=== PATIENT | male | born 1925 | race Caucasian/White ===

== ENCOUNTER → 2017-05-13 | Day surgery (SDC) | payer MEDICARE ==
[~2017-05-13] VITALS: Ht 185.4 cm; Wt 95.0 kg
[~2017-05-13] MED LIST: ATOR80TA45 PO; BACITRACIN TOP OINT 15 GM TUBE ONE; CHLORHEXIDINE GLUCONATE 2 % 1 PACK (2 CLOTHS) TOPICAL PRN; CHOL1TAB29 PO; DEXAMETHASONE SOD PHOS 4 MG/ML VIAL IV ONE; DYAZ37.5 PO; ENAL20TA PO; FAMOTIDINE 20 MG/2 ML VIAL ONE; FISH100020 PO; GEMF600T PO; GLIM4TAB PO; INSULIN HUMAN REGULAR 1,000 UNITS/10 ML VIAL SQ PRN; LACTATED RINGER'S 1000 ML IV PRN; LIDOCAINE 1%/EPINEPHrine 1:100,000 SOLN 30 ML VIAL ONE; LIDOCAINE HCL 1% PF 5 ML SYRINGE OTHER ONE; LISI-515 PO; METOPROLOL TARTRATE 25 MG TAB PO PRN; MINERAL OIL 10 ML VIAL ONE; ONDANSETRON HCL 4 MG/2 ML VIAL IV PUSH ONE; OXYC1TAB63 PO; PHENYLEPH/NS 1000 MCG/10 ML SYR IV ONE; POVIDONE IODINE 5% (ANTISEPSIS KIT) 4 APPLICATIONS EACH NARE PRN; PROPOFOL 200 MG/20 ML AMP IV ONE; SODIUM CHLORID 0.9% 500 ML IV PRN; ceFAZolin 2 GM PREMIX 50 ML IV SCH; ePHEDrine/NS 25 MG/5 ML SYRINGE IV ONE; oxyCODONE/ACETAMINOPHEN 5 MG/325 MG TAB ONE
[2017-05-13 07:38] LABS: AUTOMATED NEUTROPHIL # 4.7 TH/MM3 (1.8-7.7); BASOPHIL % 0.6 % (0.0-2.0); EOSINOPHIL # 0.2 TH/MM3 (0-0.4); EOSINOPHIL % 2.8 % (0.0-4.0); HEMATOCRIT 40.3 % (39.0-51.0); HEMOGLOBIN 13.5 GM/DL (13.0-17.0); LYMPHOCYTE # 1.3 TH/MM3 (1.0-4.8); MEAN CORPUSCULAR HEMOGLOBIN 28.5 PG (27.0-34.0); MEAN CORPUSCULAR HGB CONC 33.5 % (32.0-36.0); MEAN PLATELET VOLUME 7.7 FL (7.0-11.0); MONO % 6.9 % (0.0-8.0); MONOCYTE # 0.5 TH/MM3 (0-0.9); NEUT % 69.7 % (16.0-70.0); PLATELET COUNT 210 TH/MM3 (150-450); RED BLOOD COUNT 4.74 MIL/MM3 (4.50-5.90); RED CELL DISTRIBUTION WIDTH 13.5 % (11.6-17.2); WHITE BLOOD COUNT 6.7 TH/MM3 (4.0-11.0)
[2017-05-13 07:46] LABS: BICARBONATE 27.9 MEQ/L (21.0-32.0)
[2017-05-13 09:05] VITALS: PULSE 53
--- NOTE | 2017-05-13 09:10 | PD.OP ---
Operative Report 1 Right Leg Skin cancer Upper Lateral 2 Right leg skin cancer Upper Medial 3 Right leg skin cancer Lower Medial 4 Left leg skin cancer Lower lateral Postoperative Diagnosis: 1 Right Leg Skin cancer Upper Lateral 2 Right leg skin cancer Upper Medial 3 Right leg skin cancer Lower Medial 4 Left leg skin cancer Lower lateral Procedure: 1 Excision Right Leg Skin cancer Upper Lateral 4 cm diameter excision, Split thickness skin graft from Right thigh 2 Excision Right leg skin cancer Upper Medial 3 cm diameter excision, Split thickness skin graft from Right thigh 3 Excision Right leg skin cancer Lower Medial 3 cm diameter excision, Split thickness skin graft from Right thigh 4 Excision Left leg skin cancer Lower lateral 4 cm diameter excision, Split thickness skin graft from Right thigh Anesthesia: gen Surgeon: Tyler Shearer Sheet Rock Installer(s): rn Resident Surgeon: none Operation and Findings: Preoperative markings were done in holding area using a 1 cm distance from the lesion edges on all areas He was brought to the operating room, general anesthesia started Prep and drape done Time out completed All lesion area markings reinforced, all injected with dilute Lidocaine + Epi + Saline mixture Lesions excised at the subcutaneous level and all marked with suture superior Excision sizes as follows 1 Excision Right Leg Skin cancer Upper Lateral 4 cm diameter excision, Split thickness skin graft from Right thigh 2 Excision Right leg skin cancer Upper Medial 3 cm diameter excision, Split thickness skin graft from Right thigh 3 Excision Right leg skin cancer Lower Medial 3 cm diameter excision, Split thickness skin graft from Right thigh 4 Excision Left leg skin cancer Lower lateral 4 cm diameter excision, Split thickness skin graft from Right thigh Hemostasis completed. Split thickness skin graft inch taken with air dermatome. Meshed 1.5. Donor site injected with lidocaine+Epi mix Graft applied to all sites, sutured in place with 4/0 Chromic running sutures. All areas cleaned. Xeroform, Wet layered cotton dressings applied, wrapped with cotton roll and Singh bandage without tension. Donor site - Xeroform, wet cotton and ABD pad, tape, Patient remained stable, blood loss minimal less than 2 cc. No complications. Tyler Shearer MD May 13, 2017 09:10
[2017-05-13 10:30] VITALS: BP 136/70; PULSE 64; RESP 16; TEMP 97.7; O2SAT 99
== END | disposition home or self-care (01) ==
LOC: PHSDC 06:24
PROVIDERS: ATTEND Plastic Surgery
DX: C44.722 Squamous cell carcinoma of skin of right lower limb, including hip (principal); C44.729 Squamous cell carcinoma of skin of left lower limb, including hip; L90.5 Scar conditions and fibrosis of skin; Z01.818 Encounter for other preprocedural examination
CPT/HCPCS: 00400; 11603; 11604; 15100; 15101; 36415; 80051; 85025; 88305; J0690; J1100; J2370; J2405; J7120

== ENCOUNTER 2017-08-20 15:49 | Observation (INO) | payer MEDICARE ==
[~2017-08-20 15:49] MED LIST changes: -BACITRACIN TOP OINT 15 GM TUBE ONE; -CHLORHEXIDINE GLUCONATE 2 % 1 PACK (2 CLOTHS) TOPICAL PRN; -DEXAMETHASONE SOD PHOS 4 MG/ML VIAL IV ONE; -FAMOTIDINE 20 MG/2 ML VIAL ONE; -INSULIN HUMAN REGULAR 1,000 UNITS/10 ML VIAL SQ PRN; -LACTATED RINGER'S 1000 ML IV PRN; -LIDOCAINE 1%/EPINEPHrine 1:100,000 SOLN 30 ML VIAL ONE; -LIDOCAINE HCL 1% PF 5 ML SYRINGE OTHER ONE; -METOPROLOL TARTRATE 25 MG TAB PO PRN; -MINERAL OIL 10 ML VIAL ONE; -ONDANSETRON HCL 4 MG/2 ML VIAL IV PUSH ONE; -PHENYLEPH/NS 1000 MCG/10 ML SYR IV ONE; -POVIDONE IODINE 5% (ANTISEPSIS KIT) 4 APPLICATIONS EACH NARE PRN; -PROPOFOL 200 MG/20 ML AMP IV ONE; -SODIUM CHLORID 0.9% 500 ML IV PRN; -ceFAZolin 2 GM PREMIX 50 ML IV SCH; -ePHEDrine/NS 25 MG/5 ML SYRINGE IV ONE; -oxyCODONE/ACETAMINOPHEN 5 MG/325 MG TAB ONE
[2017-08-20 15:56] VITALS: BP 102/63; PULSE 88; RESP 17; TEMP 97.4; O2SAT 92
[2017-08-20] MEDS ORDERED: FENO145T2 PO (16:09)
--- NOTE | 2017-08-20 16:11 | PD ---
HPI Chief Complaint: Diabetic Time Seen by Provider: 16:01 Travel History International Travel<30 days: No Contact w/Intl Traveler<30days: No Traveled to known affect area: No History of Present Illness HPI 89-year-old male presents emergency department with hyperglycemia today. Patient has type 2 diabetes for which he takes Glimeperide 4 mg twice daily. Patient states he normally has fairly good sugars, but today it was over 300. He has no pain, fever, chills, or recent illness. Patient denies urinary symptoms different than normal. He states he called his primary care physician who recommended he come in to get checked. Blood sugar in triage was 332. Patient has no nausea or vomiting. No diarrhea. He is allergic to codeine. PFSH Past Medical History Cancer: Yes (SKIN) Cardiovascular Problems: Yes Diabetes: Yes Patient Takes Glucophage: No Diminished Hearing: No Endocrine: No Genitourinary: No Hepatitis: No Hiatal Hernia: No Hypertension: Yes Immune Disorder: No Musculoskeletal: No Neurologic: No Psychiatric: No Respiratory: No Thyroid Disease: No Triglycerides - High: Yes ?: Not Past Surgical History Abdominal Surgery: No AICD: No Cardiac Surgery: No Endocrine Surgery: Yes (THYROIDECTOMY OF SOME TYPE) Eye Surgery: Yes (CATARACT EXTRACTION) Genitourinary Surgery: No Gynecologic Surgery: No Joint Replacement: No Pacemaker: No Thoracic Surgery: No Social History Alcohol Use: No Tobacco Use: No Substance Use: No Allergies-Medications (Allergen,Severity, Reaction): Coded Allergies: codeine (Verified Allergy, Unknown, 08/20/17) Reported Meds & Prescriptions Reported Meds & Active Scripts Active Oxycodone-Acetaminophen 5-325 mg Tab 1-2 Tab PO Q4H PRN 7 Days Reported Fenofibrate 145 Mg Tab 145 Mg PO DAILY Lisinopril 20 Mg Tab 20 Mg PO DAILY Glimepiride 4 Mg Tab 4 Mg PO BIDAC Dyazide (Triamterene-Hydrochlorothiazide) 37.5-25 Mg Cap 1 Cap PO DAILY Fish Oil 1000 mg ([place]-3 Fatty Acids) 300 Mg-1,000 Mg Cap 1 Cap PO TID Gemfibrozil 600 Mg Tab 600 Mg PO BIDAC Take 30 minutes prior to breakfast and dinner. Atorvastatin (Atorvastatin Calcium) 80 Mg Tab 80 Mg PO QOD Review of Systems Except as stated in HPI: all other systems reviewed are Neg General / Constitutional: No: Fever, Chills Eyes: No: Visual changes HENT: No: Headaches Cardiovascular: No: Chest Pain or Discomfort Respiratory: No: Shortness of Breath Gastrointestinal: No: Nausea, Vomiting, Diarrhea, Abdominal Pain Genitourinary: No: Urgency, Frequency, Dysuria Musculoskeletal: No: Pain Skin: No Rash Neurologic: No: Weakness Psychiatric: No: Depression Endocrine: Positive: Other (Elevated blood sugar), No: Polydipsia Hematologic/Lymphatic: No: Easy Bruising Physical Exam Narrative GENERAL: Patient appears in no acute distress. SKIN: Warm and dry. Normal color. Somewhat decreased turgor with tenting. HEAD: Atraumatic. Normocephalic. Nontender. EYES: Pupils equal and round. No scleral icterus. No injection or drainage. ENT: No nasal bleeding or discharge. Mucous membranes pink and moist. Pharynx is clear. Airways patent. NECK: Trachea midline. Supple and nontender. CARDIOVASCULAR: Regular rate and rhythm. RESPIRATORY: No accessory muscle use. Clear to auscultation. Breath sounds equal bilaterally. GASTROINTESTINAL: Abdomen soft, non-tender, nondistended. Hepatic and splenic margins not palpable. MUSCULOSKELETAL: Extremities without clubbing, cyanosis, or edema. No obvious deformities. NEUROLOGICAL: Awake and alert. No obvious cranial nerve deficits. Motor grossly within normal limits. Five out of 5 muscle strength in the arms and legs. Normal speech. PSYCHIATRIC: Appropriate mood and affect; insight and judgment normal. Data Data Last Documented VS Vital Signs Date Time Temp Pulse Resp B/P (MAP) Pulse Ox O2 Delivery O2 Flow Rate FiO2 08/20/17 15:56 97.4 88 17 102/63 (76) 92 Orders Orders Electrocardiogram (08/20/17 16:08) Complete Blood Count With Diff (08/20/17 16:08) Comprehensive Metabolic Panel (08/20/17 16:08) Magnesium (Mg) (08/20/17 16:08) Beta Hydroxybutyrate (Acetone) (08/20/17 16:08) Urinalysis - C+S If Indicated (08/20/17 16:08) Chest, Single Ap (08/20/17 16:08) Blood Glucose (08/20/17 16:08) Blood Glucose (08/20/17 17:08) Ecg Monitoring (08/20/17 16:08) Iv Access Insert/Monitor (08/20/17 16:08) Oximetry (08/20/17 16:08) NPO (08/20/17 16:08) Sodium Chloride 0.9% Flush (Ns Flush) (08/20/17 16:15) Insulin Human Regular Inj (Novolin R Inj (08/20/17 16:15) Sodium Chlorid 0.9% 500 Ml Inj (Ns 500 M (08/20/17 16:15) Insulin Human Regular Inj (Novolin R Inj (08/20/17 17:15) Labs Laboratory Tests Test 08/20/17 16:16 White Blood Count 10.7 TH/MM3 Red Blood Count 5.24 MIL/MM3 Hemoglobin 15.2 GM/DL Hematocrit 45.8 % Mean Corpuscular Volume 87.4 FL Mean Corpuscular Hemoglobin 29.1 PG Mean Corpuscular Hemoglobin Concent 33.3 % Red Cell Distribution Width 15.0 % Platelet Count 314 TH/MM3 Mean Platelet Volume 8.1 FL Neutrophils (%) (Auto) 76.2 % Lymphocytes (%) (Auto) 17.3 % Monocytes (%) (Auto) 5.8 % Eosinophils (%) (Auto) 0.3 % Basophils (%) (Auto) 0.4 % Neutrophils # (Auto) 8.1 TH/MM3 Lymphocytes # (Auto) 1.8 TH/MM3 Monocytes # (Auto) 0.6 TH/MM3 Eosinophils # (Auto) 0.0 TH/MM3 Basophils # (Auto) 0.0 TH/MM3 CBC Comment DIFF FINAL Differential Comment Urine Color YELLOW Urine Turbidity HAZY Urine pH 6.5 Urine Specific [place] 1.014 Urine Protein NEG mg/dL Urine Glucose (UA) 1000 mg/dL Urine Ketones 10 mg/dL Urine Occult Blood NEG Urine Nitrite NEG Urine Bilirubin NEG Urine Urobilinogen LESS THAN 2.0 MG/DL Urine Leukocyte Esterase NEG Urine RBC 1 /hpf Urine WBC 1 /hpf Urine Mucus FEW /lpf Microscopic Urinalysis Comment CULT NOT INDICATED Blood Urea Nitrogen 36 MG/DL Creatinine 2.02 MG/DL Random Glucose 340 MG/DL Total Protein 7.3 GM/DL Albumin 3.2 GM/DL Calcium Level 9.6 MG/DL Magnesium Level 2.6 MG/DL Alkaline Phosphatase 67 U/L Aspartate Amino Transf (AST/SGOT) 71 U/L Alanine Aminotransferase (ALT/SGPT) 47 U/L Total Bilirubin 0.8 MG/DL Sodium Level 131 MEQ/L Potassium Level 4.4 MEQ/L Chloride Level 93 MEQ/L Carbon Dioxide Level 24.3 MEQ/L Anion Gap 14 MEQ/L Estimat Glomerular Filtration Rate 31 ML/MIN B-Hydroxybutyrate 0.64 MMOL/L MDM Medical Decision Making Medical Screen Exam Complete: Yes Emergency Medical Condition: Yes Medical Record Reviewed: Yes Differential Diagnosis Hyperglycemia. Possible infection. Need for insulin. Narrative Course Patient is medically stable at time of exam. Chest x-ray and EKG are ordered. Labs ordered including CBC, CMP, beta hydroxybutyrate, magnesium. IV access is obtained and the patient is given 5 mg regular insulin IV, and 500 mL of normal saline bolus. CBC is unremarkable UA significant for greater than 1000 glucose, 10 ketones. No signs of infection noted CMP shows sodium of 131, chloride 93, BUN is 36, creatinine is elevated at 2.02. T4 is 31, glucose is 340, magnesium is 2.6, AST is 71, albumin is 3.2 Chest x-ray is unremarkable. Recheck blood sugar is 307. Patient is given an additional 5 units of regular insulin IV. Calls placed to the hospitalist regarding the patient's low sodium, elevated creatinine, and hyperglycemia Diagnosis Primary Impression: Hyperglycemia due to type 2 diabetes mellitus Qualified Codes: E11.65 - Type 2 diabetes mellitus with hyperglycemia Additional Impressions: Elevated creatine kinase Hyponatremia Admitting Information Admitting Physician Requests: Observation Condition: Stable Obdulio Erwin August 20, 2017 16:11
[2017-08-20] MEDS ORDERED: SODIUM CHLORID 0.9% 500 ML INJ 500 ML IV ONE (16:15)
[2017-08-20] MEDS ORDERED: INSULIN HUMAN REGULAR 1,000 UNITS/10 ML VIAL IV PUSH ONE ×2 (16:15→17:15)
[2017-08-20] MEDS ORDERED: SODIUM CHLORIDE 0.9% FLUSH 10 ML FLUSH IVF PRN (16:15)
[2017-08-20 16:45] LABS: AUTOMATED NEUTROPHIL # 8.1 TH/MM3 (1.8-7.7); BASOPHIL % 0.4 % (0.0-2.0); EOSINOPHIL % 0.3 % (0.0-4.0); HEMATOCRIT 45.8 % (39.0-51.0); HEMOGLOBIN 15.2 GM/DL (13.0-17.0); LYMPH % 17.3 % (9.0-44.0); LYMPHOCYTE # 1.8 TH/MM3 (1.0-4.8); MEAN CELL VOLUME 87.4 FL (80.0-100.0); MEAN CORPUSCULAR HEMOGLOBIN 29.1 PG (27.0-34.0); MEAN CORPUSCULAR HGB CONC 33.3 % (32.0-36.0); MEAN PLATELET VOLUME 8.1 FL (7.0-11.0); MONO % 5.8 % (0.0-8.0); MONOCYTE # 0.6 TH/MM3 (0-0.9); NEUT % 76.2 % (16.0-70.0); PLATELET COUNT 314 TH/MM3 (150-450); RED BLOOD COUNT 5.24 MIL/MM3 (4.50-5.90); WHITE BLOOD COUNT 10.7 TH/MM3 (4.0-11.0)
[2017-08-20 16:47] LABS: BILIRUBIN, URINE NEG (NEG); BLOOD, URINE NEG (NEG); GLUCOSE,URINE 1000 mg/dL (NEG); KETONE, URINE 10 mg/dL (NEG); MUCUS URINE FEW /lpf (OCC); NITRITE,URINE NEG (NEG); PH, URINE 6.5 (5.0-8.5); URINE COLOR YELLOW (YELLW/STRAW); URINE LEUKOCYTE ESTERASE NEG (NEG)
--- NOTE | 2017-08-20 17:02 | RADRPT ---
EXAM DATE: 08/20/2017 4:59 PM EDT AGE/SEX: 89 years / Male INDICATIONS: Short of breath. CLINICAL DATA: This is the patient's initial encounter. Patient reports that signs and symptoms have been present for 1 day and indicates a pain score of 0/10. MEDICAL/SURGICAL HISTORY: None. None. COMPARISON: [facility] – [place], 06/07/2012. . FINDINGS: Single view of the chest is provided. The heart is normal in size. The lungs are clear. The osseous s tructures demonstrate degenerative changes within the shoulders bilaterally. No pneumothorax is evide nt. CONCLUSION: No acute cardiopulmonary findings. Degenerative changes in the shoulders bilaterally. Electronically signed by: David Abraham MD 08/20/2017 5:01 PM EDT
[2017-08-20 17:03] LABS: ALBUMIN 3.2 GM/DL (3.4-5.0); ALT (GPT) 47 U/L (12-78); AST (GOT) 71 U/L (15-37); BICARBONATE 24.3 MEQ/L (21.0-32.0); BLOOD UREA NITROGEN 36 MG/DL (7-18); CALCIUM 9.6 MG/DL (8.5-10.1); CHLORIDE 93 MEQ/L (98-107); CREATININE 2.02 MG/DL (0.60-1.30); GLOMERULAR FILTRATION RATE 31 ML/MIN (>89); GLUCOSE,RANDOM 340 MG/DL (74-106); MAGNESIUM 2.6 MG/DL (1.5-2.5); SODIUM (NA) 131 MEQ/L (136-145)
[2017-08-20 17:05] LABS: ALKALINE PHOSPHATASE 67 U/L (45-117); TOTAL BILIRUBIN ADULT 0.8 MG/DL (0.2-1.0); TOTAL PROTEIN 7.3 GM/DL (6.4-8.2)
[2017-08-20 18:18] VITALS: BP 108/61; PULSE 86; RESP 16; O2SAT 97
--- NOTE | 2017-08-20 18:42 | HHI.HP ---
HPI Service [facility] Hospitalists Primary Care Physician Wang Woodward D.O. Admission Diagnosis Hyperglycemia/Elevated Creatinine/Hyponatremia Chief Complaint: fluctuating bg fall Travel History International Travel<30 Days: No Contact w/Intl Traveler <30 Da: No Traveled to Known Affected Are: No History of Present Illness Pt is 89 yo with dm2, ckd 3, htn presenting to ED for fluctuating bg. He also reports a fall this past week and seen by EMS. He has some abrasions over the knees with mild foul smell from the left knee wound. They report his bg was 60 and this is unusual. He typically checks it once daily and they say it's around 120 in AM usually. Today is was in 300s. He has poor appetite. He has been weaker per his son. In ED they find some spencer/dehydration/hyponatremia/ hyperglycemia and request observation. No recent change in dm meds reported. Review of Systems Other fall fluctuating bg. Past Family Social History Past Medical History dm 2 hypertriglyceridemia ckd 3 htn partial thyroidectomy "irreg heartbeat discovered recently" Reported Medications Fenofibrate 145 Mg Tab 145 Mg PO DAILY Lisinopril 20 Mg Tab 20 Mg PO DAILY Glimepiride 4 Mg Tab 4 Mg PO BIDAC Dyazide (Triamterene-Hydrochlorothiazide) 37.5-25 Mg Cap 1 Cap PO DAILY Fish Oil 1000 mg ([place]-3 Fatty Acids) 300 Mg-1,000 Mg Cap 1 Cap PO TID Gemfibrozil 600 Mg Tab 600 Mg PO BIDAC Take 30 minutes prior to breakfast and dinner. Atorvastatin (Atorvastatin Calcium) 40 qod Allergies: Coded Allergies: codeine (Verified Allergy, Unknown, 08/20/17) Family History nc Social History no etoh/tob Physical Exam Vital Signs nad heart irreg lung cta abd s/nt ext denuded skin over shins/knees ext no pitting. Vital Signs Date Time Temp Pulse Resp B/P (MAP) Pulse Ox O2 Delivery O2 Flow Rate FiO2 08/20/17 18:18 86 16 108/61 (77) 97 Room Air 08/20/17 15:56 97.4 88 17 102/63 (76) 92 Laboratory Laboratory Tests Test 08/20/17 16:16 White Blood Count 10.7 Red Blood Count 5.24 Hemoglobin 15.2 Hematocrit 45.8 Mean Corpuscular Volume 87.4 Mean Corpuscular Hemoglobin 29.1 Mean Corpuscular Hemoglobin Concent 33.3 Red Cell Distribution Width 15.0 Platelet Count 314 Mean Platelet Volume 8.1 Neutrophils (%) (Auto) 76.2 Lymphocytes (%) (Auto) 17.3 Monocytes (%) (Auto) 5.8 Eosinophils (%) (Auto) 0.3 Basophils (%) (Auto) 0.4 Neutrophils # (Auto) 8.1 Lymphocytes # (Auto) 1.8 Monocytes # (Auto) 0.6 Eosinophils # (Auto) 0.0 Basophils # (Auto) 0.0 CBC Comment DIFF FINAL Differential Comment Urine Color YELLOW Urine Turbidity HAZY Urine pH 6.5 Urine Specific [place] 1.014 Urine Protein NEG Urine Glucose (UA) 1000 Urine Ketones 10 Urine Occult Blood NEG Urine Nitrite NEG Urine Bilirubin NEG Urine Urobilinogen LESS THAN 2.0 Urine Leukocyte Esterase NEG Urine RBC 1 Urine WBC 1 Urine Mucus FEW Microscopic Urinalysis Comment CULT NOT INDICATED Blood Urea Nitrogen 36 Creatinine 2.02 Random Glucose 340 Total Protein 7.3 Albumin 3.2 Calcium Level 9.6 Magnesium Level 2.6 Alkaline Phosphatase 67 Aspartate Amino Transf (AST/SGOT) 71 Alanine Aminotransferase (ALT/SGPT) 47 Total Bilirubin 0.8 Sodium Level 131 Potassium Level 4.4 Chloride Level 93 Carbon Dioxide Level 24.3 Anion Gap 14 Estimat Glomerular Filtration Rate 31 B-Hydroxybutyrate 0.64 Result Diagram: 08/20/17 1616 08/20/17 1616 Caprini VTE Risk Assessment Caprini VTE Risk Assessment: Mod/High Risk (score >= 2) Caprini Risk Assessment Model Point Value = 1 Point Value = 2 Point Value = 3 Point Value = 5 Age 41-60 Minor surgery BMI > 25 kg/m2 Swollen legs Varicose veins or History of unexplained or recurrent spontaneous Oral contraceptives or hormone replacement Sepsis (< 1 month) Serious lung disease, including pneumonia (< 1 month) Abnormal pulmonary function Acute myocardial infarction Congestive heart failure (< 1 month) History of inflammatory bowel disease Medical patient at bed rest Age 61-74 Arthroscopic surgery Major open surgery (> 45 min) Laparoscopic surgery (> 45 min) Malignancy Confined to bed (> 72 hours) Immobilizing plaster cast Central venous access Age >= 75 History of VTE Family history of VTE Factor V Leiden Prothrombin [id number] Lupus anticoagulant Anticardiolipin antibodies Elevated serum homocysteine Heparin-induced thrombocytopenia Other congenital or acquired thrombophilia Stroke (< 1 month) Elective arthroplasty Hip, pelvis, or leg fracture Acute spinal cord injury (< 1 month) Prophylaxis Regimen Total Risk Factor Score Risk Level Prophylaxis Regimen 0-1 Low Early ambulation 2 Moderate Order ONE of the following: *Sequential Compression Device (SCD) *Heparin 5000 units SQ BID 3-4 Higher Order ONE of the following medications: *Heparin 5000 units SQ TID *Enoxaparin/Lovenox 40 mg SQ daily (WT < 150 kg, CrCl > 30 mL/min) *Enoxaparin/Lovenox 30 mg SQ daily (WT < 150 kg, CrCl > 10-29 mL/min) *Enoxaparin/Lovenox 30 mg SQ BID (WT < 150 kg, CrCl > 30 mL/min) AND/OR *Sequential Compression Device (SCD) 5 or more Highest Order ONE of the following medications: *Heparin 5000 units SQ TID (Preferred with Epidurals) *Enoxaparin/Lovenox 40 mg SQ daily (WT < 150 kg, CrCl > 30 mL/min) *Enoxaparin/Lovenox 30 mg SQ daily (WT < 150 kg, CrCl > 10-29 mL/min) *Enoxaparin/Lovenox 30 mg SQ BID (WT < 150 kg, CrCl > 30 mL/min) AND *Sequential Compression Device (SCD) Assessment and Plan Problem List: (1) DM type 2 (diabetes mellitus, type 2) ICD Codes: E11.9 - Type 2 diabetes mellitus without complications Status: Acute Plan: 1. dm 2 presenting with hyperglycemia recent hypoglycemia with fall(seen by EMS) bilateral knee abrasions due to fall a/ckd 3 likely from volume depletion hyponatremia related to volume depletion. appears to have controlled afib 2. htn plan observation cont gentle ivf hydration hold diuretic cont oha, check hgba1c. check bg qac/hs. ssi ...adjust meds as needed. 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 (2) Hyponatremia ICD Codes: E87.1 - Hypo-osmolality and hyponatremia Status: Acute (3) Acute worsening of stage 3 chronic kidney disease ICD Codes: N18.3 - Chronic kidney disease, stage 3 (moderate) Status: Acute (4) Fall ICD Codes: W19.XXXA - Unspecified fall, initial encounter Status: Acute (5) HTN (hypertension) ICD Codes: I10 - Essential (primary) hypertension Status: Chronic Spencer Donaldson MD August 20, 2017 18:42
[2017-08-20 20:02] VITALS: BP 111/62; PULSE 85; RESP 16; TEMP 98.5; O2SAT 97
[2017-08-20] MEDS: SODIUM CHLOR 0.9% 1000 ML INJ 1,000 ML IV SCH (20:19)
[2017-08-20] MEDS: MUPIROCIN 2% OINT 22 GM TUBE TOPICAL SCH (22:55)
[2017-08-20] MEDS: INSULIN ASPART SUPPLEMENTAL SCALE SQ SCH (22:56)
[2017-08-21] VITALS (15 sets, daily range): BP systolic 97–139; BP diastolic 52–72; PULSE 56–99; RESP 16–18; TEMP 97.2–98.4; O2SAT 97–99
[2017-08-21] MEDS: MUPIROCIN 2% OINT 22 GM TUBE TOPICAL SCH ×3 (06:00→22:00)
[2017-08-21] MEDS: INSULIN ASPART SUPPLEMENTAL SCALE SQ SCH ×4 (08:00→21:47)
[2017-08-21 08:18] LABS: BICARBONATE 22.9 MEQ/L (21.0-32.0); BLOOD UREA NITROGEN 31 MG/DL (7-18); CALCIUM 8.8 MG/DL (8.5-10.1); CHLORIDE 102 MEQ/L (98-107); CREATININE 1.53 MG/DL (0.60-1.30); GLOMERULAR FILTRATION RATE 43 ML/MIN (>89); GLUCOSE,RANDOM 133 MG/DL (74-106); MAGNESIUM 2.5 MG/DL (1.5-2.5); PHOSPHORUS 3.1 MG/DL (2.5-4.9); SODIUM (NA) 136 MEQ/L (136-145)
[2017-08-21] MEDS ORDERED: LISINOPRIL 20 MG TAB PO SCH (09:00)
[2017-08-21] MEDS: GLIMEPIRIDE 4 MG TAB PO SCH ×2 (09:13→18:16)
[2017-08-21] MEDS: FENOFIBRATE 145 MG TAB PO SCH (09:13)
[2017-08-21] MEDS: SODIUM CHLOR 0.9% 1000 ML INJ 1,000 ML IV SCH ×2 (09:14→21:25)
--- NOTE | 2017-08-21 11:11 | HHI.PR ---
Subjective Remarks No specific complaints this morning. Spoke with PT and during their assessment pt was noted to have some orthostasis with supine BP 127/59 and HR 64 and with standing BP 97/56 and HR 99 He denies feeling weak or dizzy when changing positions but reports that when the pt fell recently it was when he got up suddenly to go to the bathroom He denies any chest pain or SOB. BS overnight and this morning are improved. Objective Vitals Vital Signs Date Time Temp Pulse Resp B/P (MAP) Pulse Ox O2 Delivery O2 Flow Rate FiO2 08/21/17 10:41 99 97/56 (70) 08/21/17 10:41 96 112/57 (75) 08/21/17 10:40 64 127/59 (81) 08/21/17 08:39 56 08/21/17 08:13 97.9 68 16 139/61 (87) 99 08/21/17 04:02 97.7 60 16 98/57 (71) 98 08/21/17 01:25 89 08/21/17 01:23 79 08/21/17 01:10 97.8 80 17 106/67 (80) 97 08/20/17 20:02 98.5 85 16 111/62 (78) 97 08/20/17 19:34 08/20/17 18:18 86 16 108/61 (77) 97 Room Air 08/20/17 15:56 97.4 88 17 102/63 (76) 92 Result Diagram: 08/20/17 1616 08/21/17 0608 Other Results Laboratory Tests Test 08/20/17 16:16 08/21/17 06:08 White Blood Count 10.7 TH/MM3 Red Blood Count 5.24 MIL/MM3 Hemoglobin 15.2 GM/DL Hematocrit 45.8 % Mean Corpuscular Volume 87.4 FL Mean Corpuscular Hemoglobin 29.1 PG Mean Corpuscular Hemoglobin Concent 33.3 % Red Cell Distribution Width 15.0 % Platelet Count 314 TH/MM3 Mean Platelet Volume 8.1 FL Neutrophils (%) (Auto) 76.2 % Lymphocytes (%) (Auto) 17.3 % Monocytes (%) (Auto) 5.8 % Eosinophils (%) (Auto) 0.3 % Basophils (%) (Auto) 0.4 % Neutrophils # (Auto) 8.1 TH/MM3 Lymphocytes # (Auto) 1.8 TH/MM3 Monocytes # (Auto) 0.6 TH/MM3 Eosinophils # (Auto) 0.0 TH/MM3 Basophils # (Auto) 0.0 TH/MM3 CBC Comment DIFF FINAL Differential Comment Urine Color YELLOW Urine Turbidity HAZY Urine pH 6.5 Urine Specific [place] 1.014 Urine Protein NEG mg/dL Urine Glucose (UA) 1000 mg/dL Urine Ketones 10 mg/dL Urine Occult Blood NEG Urine Nitrite NEG Urine Bilirubin NEG Urine Urobilinogen LESS THAN 2.0 MG/DL Urine Leukocyte Esterase NEG Urine RBC 1 /hpf Urine WBC 1 /hpf Urine Mucus FEW /lpf Microscopic Urinalysis Comment CULT NOT INDICATED Blood Urea Nitrogen 36 MG/DL 31 MG/DL Creatinine 2.02 MG/DL 1.53 MG/DL Random Glucose 340 MG/DL 133 MG/DL Total Protein 7.3 GM/DL Albumin 3.2 GM/DL Calcium Level 9.6 MG/DL 8.8 MG/DL Magnesium Level 2.6 MG/DL 2.5 MG/DL Alkaline Phosphatase 67 U/L Aspartate Amino Transf (AST/SGOT) 71 U/L Alanine Aminotransferase (ALT/SGPT) 47 U/L Total Bilirubin 0.8 MG/DL Sodium Level 131 MEQ/L 136 MEQ/L Potassium Level 4.4 MEQ/L 3.9 MEQ/L Chloride Level 93 MEQ/L 102 MEQ/L Carbon Dioxide Level 24.3 MEQ/L 22.9 MEQ/L Anion Gap 14 MEQ/L 11 MEQ/L Estimat Glomerular Filtration Rate 31 ML/MIN 43 ML/MIN Total Creatine Kinase 154 U/L B-Hydroxybutyrate 0.64 MMOL/L Phosphorus Level 3.1 MG/DL Imaging Last Impressions Chest X-Ray 08/20/17 1608 Signed Impressions: CONCLUSION: No acute cardiopulmonary findings. Degenerative changes in the shoulders bilaterally. Objective Remarks General: NAD, AAOx3 Chest: CTA Cardiac: Regular Abd: +BS, soft ND/NT Ext: No edema A/P Problem List: (1) DM type 2 (diabetes mellitus, type 2) ICD Codes: E11.9 - Type 2 diabetes mellitus without complications Status: Acute Plan: Diabetes mellitus, type 2 - Pt is an 89 y/o WM with diabetes mellitus, HTN, and CKD stage 3 - He presented to the ED on 08/20/17 with hyperglycemia - His BS at admission were elevated at 300 - Pt was resumed on his OHA - NovoLog SSI and received 4 units last night - BS have improved today - Hgb A1C is pending. 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 - DVT prophylaxis with SCDs Acute on CKD, stage 3 likely from volume depletion Hyponatremia likely related to volume depletion - Pt given IVF hydration overnight - Diuretic held - Labs are improved - Renal function labs are back to baseline and Hyponatremia resolved. Recent fall Orthostasis - Pt reportedly had recent hypoglycemia with fall(seen by EMS) and sustained bilateral knee abrasions due to fall - Pt given topical Abx for the knee abrasions - He was noted today to have some orthostatic hypotension and this may have contributed to his recent fall as well. - Discussed transitioning between lying down to sitting to standing slowly with a 10 count between movements - Add SUNITA ingram - PT recommended that pt may benefit from SNF placement but pt and are not interested at this time. - Decrease Lisinopril Paroxysmal A. fib - Telemetry - Pt is not on any rate controlling medications or anticoagulants - Pt follows with [facility] Cardiology output HTN - Dyazide stopped - Lisinopril dose adjusted for orthostasis (2) Hyponatremia ICD Codes: E87.1 - Hypo-osmolality and hyponatremia Status: Acute (3) Acute worsening of stage 3 chronic kidney disease ICD Codes: N18.3 - Chronic kidney disease, stage 3 (moderate) Status: Acute (4) Fall ICD Codes: W19.XXXA - Unspecified fall, initial encounter Status: Acute (5) HTN (hypertension) ICD Codes: I10 - Essential (primary) hypertension Status: Chronic Assessment and Plan Patient examined. Assessment and plan formulated with Leslie Fry PA-C. I agree with the above. spencer/hyponatremia/falls./hyperglycemia. today orthostatic. bilateral knee wounds after fall pt would benefit from snf. refusing. will do hhc/pt recheck orthostatics in AM. cont ivf monitor bg. might need oha adjustment Leslie Fry August 21, 2017 11:11 Spencer Donaldson MD August 21, 2017 16:21
--- NOTE | 2017-08-21 11:14 | HHI.FF ---
Face to Face Verification Diagnosis: (1) DM type 2 (diabetes mellitus, type 2) (2) Acute worsening of stage 3 chronic kidney disease (3) HTN (hypertension) (4) Fall (5) Hyperglycemia due to type 2 diabetes mellitus (6) Hyponatremia Physical Therapy Order: Evaluate and Treat, Improve ambulation, Strength and gait training Home Health Nursing Order: Diabetic education Nursing assessment with vital signs I have seen patient Kalen Arana on 08/21/17. My clinical findings support the need for the requested home health care services because: High risk of falls I certify that my clinical findings support that this patient is homebound because: Unsteady gait/balance Leslie Fry August 21, 2017 11:14
--- NOTE | 2017-08-21 14:46 | EKG ---
Date Performed: 08/20/2017 Time Performed: 18:47:26 PTAGE: 89 years EKG: ATRIAL FIBRILLATION RIGHT BUNDLE BRANCH BLOCK ABNORMAL ECG NO PREVIOUS TRACING DOCTOR: Edward Quinteros Interpretating Date/Time 08/21/2017 14:44:39
[2017-08-21 16:18] LABS: HEMOGLOBIN A1C 5.8 % (4.3-6.0)
[2017-08-22 02:54] VITALS: BP 125/63
[2017-08-22 03:51] VITALS: BP 109/60; PULSE 61; RESP 18; TEMP 98.1; O2SAT 96
[2017-08-22] MEDS: MUPIROCIN 2% OINT 22 GM TUBE TOPICAL SCH (07:35)
[2017-08-22] MEDS: GLIMEPIRIDE 4 MG TAB PO SCH (07:35)
[2017-08-22 07:57] LABS: BICARBONATE 25.1 MEQ/L (21.0-32.0); CALCIUM 8.6 MG/DL (8.5-10.1); CREATININE 1.42 MG/DL (0.60-1.30)
[2017-08-22 08:00] VITALS: PULSE 83
[2017-08-22] MEDS: INSULIN ASPART SUPPLEMENTAL SCALE SQ SCH (08:00)
[2017-08-22 08:08] VITALS: BP_SYST 109; BP_SYST 128; BP_DIAS 58; BP_DIAS 69; PULSE 70; RESP 16; TEMP 97.4; O2SAT 99
[2017-08-22] MEDS ORDERED: Mupirocin 2% Oint TOPICAL (08:20)
[2017-08-22] MEDS ORDERED: LISI10TA3 PO (08:20)
[2017-08-22] MEDS ORDERED: LISI-519 PO (08:24)
--- NOTE | 2017-08-22 08:31 | HHI.DCPOC ---
Discharge Care Plan Diagnosis: (1) Hyponatremia (2) Elevated creatine kinase (3) Fall (4) HTN (hypertension) (5) DM type 2 (diabetes mellitus, type 2) (6) Acute worsening of stage 3 chronic kidney disease (7) Orthostasis (8) Hyperglycemia due to type 2 diabetes mellitus Goals to Promote Your Health Medication changes include: - Decrease in Lisinopril from 20mg to 5mg once daily - Stop Gemfibrozil. - Stop Dyazide (Triamterene-HCTZ) - Followup with your PCP, Dr. Woodward, in 1 week, call for that appt - Check your blood sugars prior to meals and record the numbers to provide to your PCP at followup - Change positions slowly with a 10 count between movements (Going from lying down to sitting up and from sitting up to standing) Directions to Meet Your Goals Take your medications as prescribed Follow your dietary instruction Follow activity as directed Keep your appointments as scheduled Take your immunizations and boosters as scheduled If your symptoms worsen call your PCP, if no PCP go to Urgent Care Center or Emergency Room Smoking is Dangerous to Your Health. Avoid second hand smoke Call the 24-hour hour crisis hotline for domestic abuse at Leslie Fry Aug 22, 2017 08:31
[2017-08-22] MEDS: FENOFIBRATE 145 MG TAB PO SCH (08:33)
--- NOTE | 2017-08-22 08:50 | HHI.PR ---
Subjective Remarks Pt reports that he fell last night when his foot "slipped out from under him" when he was walking to use the bathroom in his room. He denies any dizziness or lightheadedness. PT yesterday recommended SNF for continued PT and medical management. Pt with continued orthostatic BP readings. Objective Vitals Vital Signs Date Time Temp Pulse Resp B/P (MAP) Pulse Ox O2 Delivery O2 Flow Rate FiO2 08/22/17 08:08 97.4 70 16 128/69 (88) 99 128/58 (81) 109/58 (75) 08/22/17 03:51 98.1 61 18 109/60 (76) 96 08/22/17 02:54 125/63 (83) 08/21/17 23:13 98.4 65 16 109/61 (77) 98 08/21/17 20:19 97.2 70 18 134/59 (84) 98 08/21/17 16:32 67 16 119/61 (80) 98 112/59 (76) 103/52 (69) 08/21/17 16:00 59 08/21/17 15:40 98.4 62 16 114/55 (74) 97 08/21/17 12:25 58 08/21/17 11:21 97.9 73 16 112/72 (85) 98 08/21/17 10:41 99 97/56 (70) 08/21/17 10:41 96 112/57 (75) 08/21/17 10:40 64 127/59 (81) 08/21/17 08:39 56 Result Diagram: 08/20/17 1616 08/22/17 0632 Other Results Laboratory Tests Test 08/20/17 16:16 08/21/17 06:08 08/22/17 06:32 White Blood Count 10.7 TH/MM3 Red Blood Count 5.24 MIL/MM3 Hemoglobin 15.2 GM/DL Hematocrit 45.8 % Mean Corpuscular Volume 87.4 FL Mean Corpuscular Hemoglobin 29.1 PG Mean Corpuscular Hemoglobin Concent 33.3 % Red Cell Distribution Width 15.0 % Platelet Count 314 TH/MM3 Mean Platelet Volume 8.1 FL Neutrophils (%) (Auto) 76.2 % Lymphocytes (%) (Auto) 17.3 % Monocytes (%) (Auto) 5.8 % Eosinophils (%) (Auto) 0.3 % Basophils (%) (Auto) 0.4 % Neutrophils # (Auto) 8.1 TH/MM3 Lymphocytes # (Auto) 1.8 TH/MM3 Monocytes # (Auto) 0.6 TH/MM3 Eosinophils # (Auto) 0.0 TH/MM3 Basophils # (Auto) 0.0 TH/MM3 CBC Comment DIFF FINAL Differential Comment Urine Color YELLOW Urine Turbidity HAZY Urine pH 6.5 Urine Specific [place] 1.014 Urine Protein NEG mg/dL Urine Glucose (UA) 1000 mg/dL Urine Ketones 10 mg/dL Urine Occult Blood NEG Urine Nitrite NEG Urine Bilirubin NEG Urine Urobilinogen LESS THAN 2.0 MG/DL Urine Leukocyte Esterase NEG Urine RBC 1 /hpf Urine WBC 1 /hpf Urine Mucus FEW /lpf Microscopic Urinalysis Comment CULT NOT INDICATED Blood Urea Nitrogen 36 MG/DL 31 MG/DL 30 MG/DL Creatinine 2.02 MG/DL 1.53 MG/DL 1.42 MG/DL Random Glucose 340 MG/DL 133 MG/DL 57 MG/DL Total Protein 7.3 GM/DL Albumin 3.2 GM/DL Calcium Level 9.6 MG/DL 8.8 MG/DL 8.6 MG/DL Magnesium Level 2.6 MG/DL 2.5 MG/DL Alkaline Phosphatase 67 U/L Aspartate Amino Transf (AST/SGOT) 71 U/L Alanine Aminotransferase (ALT/SGPT) 47 U/L Total Bilirubin 0.8 MG/DL Sodium Level 131 MEQ/L 136 MEQ/L 139 MEQ/L Potassium Level 4.4 MEQ/L 3.9 MEQ/L 3.6 MEQ/L Chloride Level 93 MEQ/L 102 MEQ/L 104 MEQ/L Carbon Dioxide Level 24.3 MEQ/L 22.9 MEQ/L 25.1 MEQ/L Anion Gap 14 MEQ/L 11 MEQ/L 10 MEQ/L Estimat Glomerular Filtration Rate 31 ML/MIN 43 ML/MIN 47 ML/MIN Total Creatine Kinase 154 U/L B-Hydroxybutyrate 0.64 MMOL/L Phosphorus Level 3.1 MG/DL Hemoglobin A1c 5.8 % Imaging Last Impressions Chest X-Ray 08/20/17 1608 Signed Impressions: CONCLUSION: No acute cardiopulmonary findings. Degenerative changes in the shoulders bilaterally. Objective Remarks General: NAD, AAOx3 Chest: CTA Cardiac: Regular Abd: +BS, soft ND/NT Ext: No edema, abrasions on bilateral knees A/P Problem List: (1) DM type 2 (diabetes mellitus, type 2) ICD Codes: E11.9 - Type 2 diabetes mellitus without complications Status: Acute Plan: Diabetes mellitus, type 2 - Pt is an 89 y/o WM with diabetes mellitus, HTN, and CKD stage 3 - He presented to the ED on 08/20/17 with hyperglycemia - His BS at admission were elevated at 300 - Pt was resumed on his OHA - NovoLog SSI - BS have improved today - Hgb A1C is 5.8 - Multi Spindle [employer] consulted to help with dietary recommendations for discharge but the pts refused to speak with them on 08/21 as she felt he follows his diabetic diet at home without difficulty. - DVT prophylaxis with SCDs Acute on CKD, stage 3 likely from volume depletion Hyponatremia likely related to volume depletion - Pt given IVF hydration overnight - Diuretic held - Labs are improved - Renal function labs are back to baseline and Hyponatremia resolved. Recent fall Orthostasis - Pt reportedly had recent hypoglycemia with fall(seen by EMS) and sustained bilateral knee abrasions due to fall - Pt given topical Abx for the knee abrasions - He was noted to have some orthostatic hypotension and this may have contributed to his recent fall as well. - Discussed transitioning between lying down to sitting to standing slowly with a 10 count between movements - Add SUNITA hose - Lisinopril decreased down to 5mg po daily - PT recommended that pt may benefit from SNF placement but pt and are refusing. Both the pt and his seem to have some cognitive deficits and with pt going home he is high risk for falls and repeat admissions. - We will arrange for HHC/PT upon discharge. Paroxysmal A. fib - Telemetry with some periods of tachycardia and some with bradycardia into the 40's during the night. - With pts orthostasis and periodic bradycardia, change in medications will be difficult. And with pt refusing SNF medication adjustment at home could possibly clinically make things worse. - Pt is not on any rate controlling medications or anticoagulants - Pt follows with [facility], Dr. Woodward, and will need to followup with him as an outpt. - Pt had an outpt Holter monitor on 05/01/17 with noted underlying rhythm is normal sinus, 40-103bpm, average 59bpm, occasional uniform PVCs, occasional 5-6 beats of A. fib, no pauses. HTN - Home meds adjusted. - Dyazide stopped - Lisinopril decreased to 5mg po daily (2) Hyponatremia ICD Codes: E87.1 - Hypo-osmolality and hyponatremia Status: Acute (3) Acute worsening of stage 3 chronic kidney disease ICD Codes: N18.3 - Chronic kidney disease, stage 3 (moderate) Status: Acute (4) Fall ICD Codes: W19.XXXA - Unspecified fall, initial encounter Status: Acute (5) HTN (hypertension) ICD Codes: I10 - Essential (primary) hypertension Status: Chronic Assessment and Plan Patient examined. Assessment and plan formulated with Leslie Fry PA-C. I agree with the above. spencer/hyponatremia/falls./hyperglycemia. today orthostatic. bilateral knee wounds after fall pt would benefit from snf. refusing. will do hhc/pt recheck orthostatics in AM. cont ivf monitor bg. might need oha adjustment Leslie Fry Aug 22, 2017 08:50
[2017-08-22] MEDS ORDERED: LISINOPRIL 5 MG TAB PO SCH (09:00)
[2017-08-22] MEDS ORDERED: LISINOPRIL 10 MG TAB PO SCH (09:00)
== END 2017-08-22 11:46 | disposition home or self-care (01) ==
LOC: NEPC 15:49 → NEDA 17:33 → NEPGCP 19:32
PROVIDERS: ADMIT Hospitalist; ATTEND Hospitalist
DX: E11.65 Type 2 diabetes mellitus with hyperglycemia (principal); E87.1 Hypo-osmolality and hyponatremia; E86.0 Dehydration; I45.10 Unspecified right bundle-branch block; I95.1 Orthostatic hypotension; R79.89 Other specified abnormal findings of blood chemistry; R63.0 Anorexia; S80.211A Abrasion, right knee, initial encounter; S80.212A Abrasion, left knee, initial encounter; I12.9 Hypertensive chronic kidney disease with stage 1 through stage 4 chronic kidney disease, or unspecified chronic kidney disease; E11.22 Type 2 diabetes mellitus with diabetic chronic kidney disease; N18.3 Chronic kidney disease, stage 3 (moderate); I48.0 Paroxysmal atrial fibrillation; N17.9 Acute kidney failure, unspecified; E78.1 Pure hyperglyceridemia; Z79.899 Other long term (current) drug therapy; Z85.828 Personal history of other malignant neoplasm of skin; W01.0XXA Fall on same level from slipping, tripping and stumbling without subsequent striking against object, initial encounter
CPT/HCPCS: 71045; 80048; 80053; 81001; 82010; 82550; 82948; 83036; 83735; 84100; 85025; 93005; 96361; 96372; 96374; 96376; 97162; 99285; G0378; G8987; G8988; J1815; J7030; J7040